=== PATIENT | male | born 2000 | race Caucasian/White ===

== ENCOUNTER 2022-06-10 08:07 | Emergency (ER) | payer OTHER, SELFPAY ==
--- NOTE | ~2022-06-10 | XR_ITS ---
XR toe 1st RT min 2V DATE: 06/10/2022 08:40 INDICATION: Injury one month ago. Pain, redness in the first digit nail area TECHNIQUE: 3 views COMPARISON: None FINDINGS: No fracture or dislocation, periosteal reaction or bone destruction, radiopaque foreign bod y or subcutaneous emphysema. Joint spaces are preserved. IMPRESSION: Negative Reviewed, dictated and finalized at location A. IMPRESSION: Negative
[2022-06-10 08:19] VITALS: BP 129/85; PULSE 69; RESP 16; TEMP 37.2; O2SAT 100
--- NOTE | 2022-06-10 08:21 | ED.GENADULT ---
HPI - General Adult General Chief complaint: Extremity Problem,Nontraumatic Stated complaint: toe inf Time Seen by Provider: 06/10/22 08:21 Source: patient, RN notes reviewed and old records reviewed Mode of arrival: ambulatory Limitations: no limitations History of Present Illness HPI narrative: 21-year-old male who presents to [facility] with complaints of injury to right great toe in January when he hit it on metal ledge. Patient reports that part of the nail fell off and it has started to grow back. He reports on his toe started becoming painful and some redness around the proximal nail bed with some swelling also of toe. Patient reports that he soaked his toe in peroxide and put some Neosporin on it. Patient also states that on Sunday he started with a sore throat and fever and he doesn't feel well with some dizziness also. Patient has taken some Ibuprofen. He has had COVID vaccinations no Booster MD complaint: right toe pain and redness with swelling, fever, sore throat Onset (ago): day(s) (3) Severity scale (1-10): 2 Treatments prior to arrival: NSAID and other (soaked in peroxide and applied neosporin to toe) Related Data Allergies Allergy/AdvReac Type Severity Reaction Status Date / Time cefdinir [From Omnicef] Allergy Rash Verified 06/10/22 08:53 Review of Systems Review of Systems: CONSTITUTIONAL: Positive for fever, chills, or sweats. EYES: Denies visual changes, redness, or discharge. ENT: Denies rhinorrhea, congestion, positive sore throat, otalgia. CARDIOVASCULAR: Denies chest pain, palpitations, or edema. RESPIRATORY: Denies cough or dyspnea. GASTROINTESTINAL: Denies abdominal pain, nausea, vomiting, or diarrhea. GENITOURINARY: Denies dysuria or hematuria. SKIN: Denies rash or itching. positive for redness with some swelling and discomfort right great toe MUSCULOSKELETAL: Denies back pain, joint pain, or myalgia. NEUROLOGIC: Denies headache, numbness, or weakness. PSYCHIATRIC: Denies anxiety or depression. All systems reviewed & are unremarkable except as noted in HPI and below PMFSH Past Medical History Medical History (Updated 06/11/22 @ 00:01 by Kell Philippe) Ear infection Seasonal allergies Surgical History Surgical History (Updated 06/10/22 @ 08:39 by Neisha Berkowitz NP) History of placement of ear tubes Family History Family History (Updated 06/10/22 @ 08:51 by Neisha Berkowitz NP) Grandparent Hypertension Diabetes mellitus Mother Hypertension Social History Social History (Updated 06/10/22 @ 08:51 by Neisha Berkowitz NP) Smoking status: Never smoker Alcohol intake: never Substance use: never Living arrangements: with family Occupation/Education: student Gender identity (if verbalized by the patient): Male Comments At time of signature, agree with nursing past medical, surgical, social and family history. There is no relevant family history pertinent to the presenting complaint Exam Narrative: GENERAL: Well-appearing, well-nourished, and in no acute distress. HEAD: Normocephalic, atraumatic. EYES: PERRLA and EOMI. ENT: Nares with some redness, clear post nasal rhinorrhea no epistaxis. Mucous membranes moist.TM's pearly white with good light reflex, throat with some redness, no lesions or exudates NECK: Supple. no lymphadenopathy CHEST: Clear to auscultation. No respiratory distress.SAO2 100% on room air HEART: Regular rate and rhythm. No murmur heard. Normal peripheral pulses. ABDOMEN: Soft, nontender, nondistended, normal active bowel sounds. EXTREMITIES: Normal range of motion. No edema. SKIN: Warm, dry, no rash. right great toe with some redness around distal toe with mild swelling to toe no drainage noted or acute warmth NEURO: No focal deficits. Alert and oriented x3. Course Course Level of Care: Express Care Visit Vital Signs Vital signs: Vital Signs Temperature 37.2 C 06/10/22 08:19 Pulse Rate 69 06/10/22 08:19 Respiratory
== END 2022-06-10 09:48 | disposition home or self-care (01) ==
PROVIDERS: Emergency Provider Registered Nurse; PCP Pediatrics
DX: L08.9 Local infection of the skin and subcutaneous tissue, unspecified (principal); J06.9 Acute upper respiratory infection, unspecified; Z20.822 Contact with and (suspected) exposure to COVID-19
CPT/HCPCS: 73660; 87081; 87426; 87880; 99213; C9803; G0463